=== PATIENT | female | born 1985 | race Caucasian/White ===

== ENCOUNTER 2017-06-02 17:09 | Emergency (ER) | payer OTHER ==
[~2017-06-02] VITALS: Ht 175.3 cm; Wt 72.6 kg
[2017-06-02 19:14] VITALS: BP 120/53
--- NOTE | 2017-06-03 04:28 | ED.ADGEN ---
Past History Past Medical History: Asthma Past Surgical History: No Surgical History Alcohol Use: None Drug Use: None Adult General Chief Complaint Chief Complaint Fingertip laceration HPI HPI Patient is a 32-year-old right-handed female who presents with laceration to tip of left index finger. Patient lacerated finger with sharp kitchen knife while trying to deep hit an avocado. On evaluation, there is no 2 cm semicircumferential laceration extending from the low aspect of the left finger nail to the midportion of the finger pad. This is distal to the DIP joint. Bleeding is controlled and the nail is not involved. Tetanus is up-to-date. Review of Systems Review of Systems Review symptoms as per history of present illness. Allergies Allergies Allergies Coded Allergies Type Severity Reaction Last Updated Verified No Known Drug Allergies 06/02/17 No Physical Exam Physical Exam Constitutional: Well developed, well nourished, no acute distress, non-toxic appearance. Extremities: Left hand. Left index finger, 2 cm full thickness laceration to distal fingertip extending from the radial aspect of finger nail pad to mid finger pad. Laceration as above the DIP. Bleeding is controlled. Neurologic: Alert and oriented X 3, normal motor function, normal sensory function, no focal deficits noted Psychologic: Affect normal, judgement normal, mood normal. Current Patient Data Vital Signs Vital Signs Date Time Temp Pulse Resp B/P (MAP) Pulse Ox O2 Delivery O2 Flow Rate FiO2 06/02/17 19:14 98.1 60 18 120/53 (75) 98 Room Air EKG EKG [] Radiology/Procedures Radiology/Procedures [Laceration repair procedure note. Patient's left index finger splint was copiously cleaned and irrigated. The speculum was noted to be clean. Wound was anesthetized with approximately 1 mL of lidocaine without epinephrine and closed with #6, 5oh] Prolene simple interrupted sutures. Ointment and a bandage was then applied. Typical wound care instructions were provided. Course & Med Decision Making Course & Med Decision Making Pertinent Labs and Imaging studies reviewed. (See chart for details) [Wound cleansed and closed. Wound care instructions provided.] Final Impression Final Impression [Left index finger laceration] Problems: Dragon Disclaimer Dragon Disclaimer This electronic medical record was generated, in whole or in part, using a voice recognition dictation system. ELISEO BROOKS DO Jun 03, 2017 04:28
== END 2017-06-02 19:14 | disposition home or self-care (01) ==
LOC: ER 17:09
DX: S61.211A Laceration without foreign body of left index finger without damage to nail, initial encounter (principal); J45.909 Unspecified asthma, uncomplicated; W26.0XXA Contact with knife, initial encounter; Y93.89 Activity, other specified; Y99.8 Other external cause status; Y92.89 Other specified places as the place of occurrence of the external cause
CPT/HCPCS: 12001; 99283-25